=== PATIENT | male | born 1985 | race Caucasian/White ===

== ENCOUNTER → 2021-04-27 | Outpatient (CLI) | payer OTHER | LOC: COL.VAS 15:15 | DX: M79.604 Pain in right leg (principal); Z86.718 Personal history of other venous thrombosis and embolism ==

== ENCOUNTER → 2021-05-10 | Outpatient (CLI) | payer OTHER | LOC: COL.RAD 10:33 | DX: M51.16 Intervertebral disc disorders with radiculopathy, lumbar region (principal); M47.26 Other spondylosis with radiculopathy, lumbar region; R20.2 Paresthesia of skin ==